=== PATIENT | female | born 1975 | race African-American/Black ===

== ENCOUNTER 2020-05-08 16:06 | Emergency (ER) | payer MEDICARE, OTHER ==
--- NOTE | 2020-05-08 17:44 | RAD ---
LEFT FEMUR TWO VIEWS: 05/08/20 HISTORY: Left thigh swelling starting today. There is no signs of fracture or dislocation. The bones appear demineralized. IMPRESSION: Negative left femur. POS: [facility]
[2020-05-08 17:51] LABS: Hemoglobin 12.9 g/dL (12.0-16.0); Mean Corpuscular HGB CONC 29.9 g/dL (32.0-36.0); Mean Corpuscular Hemoglobin 30.6 pg (27.0-31.0); Platelet Count 63 thou/uL (130-400); RBC Distribution Width 19.2 % (11.5-14.5); Red Blood Cell (RBC) Count 4.22 mill/uL (4.20-5.40); White Blood Cell (WBC) Count 5.8 thou/uL (4.8-10.8)
[2020-05-08 18:37] LABS: Band 5 % (5-11); Lymphocytes 60 % (21-51); MDiff Complete? YES; Macrocytosis SLIGHT = 6-15 cells (100X) (0-5/hpf); Monocytes 4 % (0-10); Neutrophil 31 % (42-75); Platelet Morphology Comment Appears Decreased
[2020-05-08 18:49] LABS: PTT 35.5 sec (22.9-36.1)
[2020-05-08 18:50] LABS: D-Dimer Test 1.76 *mcg/mL (0.27-0.43); INR-International Normal Ratio 1.1; Prothrombin Time 13.7 sec (12.0-14.7)
== END 2020-05-08 19:58 | disposition short-term general hospital (02) ==
LOC: NAV ERS 16:06
DX: M79.89 Other specified soft tissue disorders (principal)
CPT/HCPCS: 36415; 85025; 85379; 85610; 85730

== ENCOUNTER 2020-06-07 11:04 | Emergency (ER) | payer MEDICARE, OTHER ==
[2020-06-07 12:50] LABS: AST (SGOT) 132 U/L (5-34); Bilirubin, Total 0.4 mg/dL (0.2-1.2); Calcium 8.2 mg/dL (7.8-10.44); Chloride 115 mmol/L (98-107); Potassium 4.5 mmol/L (3.5-5.1); Sodium 147 mmol/L (136-145)
[2020-06-07 13:09] LABS: ALT (SGPT) 35 U/L (8-55); Albumin 2.9 g/dL (3.5-5.0); Alkaline Phosphatase 185 U/L (40-110); BUN (Urea Nitrogen) 15 mg/dL (7.0-18.7); Calc. Creatinine Clearance 0 mL/min (70-130); Carbon Dioxide 20 mmol/L (22-29); Estimated GFR-MDRD 84; Glucose 78 mg/dL (70-105); Protein, Total 7.9 g/dL (6.0-8.3)
[2020-06-07 13:39] LABS: Anion Gap 17 mmol/L (10-20)
--- NOTE | 2020-06-07 14:12 | CT ---
CT ABDOMEN NONCONTRAST CT PELVIS NONCONTRAST: (Urolithiasis protocol) DATE: 06/07/2020 HISTORY: 44-year-old female with abdominal distention COMPARISON: None TECHNIQUE: IV injection of iodinated contrast media: None Oral contrast media: None FINDINGS: Other than for urolithiasis, the lack of IV and oral contrast limits the evaluation. Dextroscoliosis. Moderate to large right pleural effusion. Large left pleural effusion. Passive atelectasis in the adj acent portions of lower lobes, left greater than right. Moderate volume of free intraperitoneal fluid throughout the abdominal cavity, and the large volume w ithin the pelvic cavity. No small bowel dilation. No renal, ureteral, or bladder calculus. No hydronephrosis. Decompressed urinary bladder. Within the limitations of a noncontrast scan, no obvious pathology identified involving liver, spleen , pancreas, kidneys IMPRESSION: 1) moderate to large volume of ascites. 2) moderate to large bilateral pleural effusions. 3) no urolithiasis or obstructive uropathy.
[2020-06-07] MEDS ORDERED: Piperacillin/Tazobactam 3.375 GM VIAL ONE (14:26)
[2020-06-07] MEDS ORDERED: Sodium Chloride 0.9% 1,000 ML ONE (14:26)
[2020-06-07] MEDS ORDERED: Sodium Chloride 0.9% 100 ML ONE (14:26)
[2020-06-07 14:47] LABS: Hemoglobin 12.2 g/dL (12.0-16.0); Mean Corpuscular Hemoglobin 31.4 pg (27.0-31.0); Mean Platelet Volume 8.1 fL (7.4-10.4); Platelet Count 114 thou/uL (130-400); RBC Distribution Width 19.8 % (11.5-14.5); Red Blood Cell (RBC) Count 3.89 mill/uL (4.20-5.40); White Blood Cell (WBC) Count 7.6 thou/uL (4.8-10.8)
[2020-06-07 15:09] LABS: Lactic Acid 1.4 mmol/L (0.5-2.2)
[2020-06-07 16:06] LABS: Eosinophils 1 % (0-10); Lymphocytes 55 % (21-51); MDiff Complete? YES; Monocytes 5 % (0-10); Neutrophil 39 % (42-75); RBC Morphology Normal
== END 2020-06-07 15:35 | disposition short-term general hospital (02) ==
LOC: NAV ERS 11:04
DX: J90 Pleural effusion, not elsewhere classified (principal); R18.8 Other ascites; G40.909 Epilepsy, unspecified, not intractable, without status epilepticus; Z79.899 Other long term (current) drug therapy
CPT/HCPCS: 74176; 80053; 83605; 85025; 96365; J2543; J7050